=== PATIENT | male | born 1955 | race Caucasian/White ===

== ENCOUNTER 2017-07-25 09:36 | Outpatient (CLI) | payer OTHER ==
[2017-07-25 18:33] LABS: CALCIUM 9.1 mg/dL (8.5-10.3); POTASSIUM 4.1 mmol/L (3.5-5.0)
== END 2017-07-25 09:37 | disposition home or self-care (01) ==
LOC: LAB.F 09:36
PROVIDERS: ATTEND Family Medicine
DX: N17.9 Acute kidney failure, unspecified (principal)
CPT/HCPCS: 36415; 80048

== ENCOUNTER 2021-10-22 03:27 | Outpatient (CLI) | payer OTHER | END 2021-10-22 03:28 | disposition EMS.NT | LOC: EMS 03:27 | DX: S90.412A Abrasion, left great toe, initial encounter (principal); S90.411A Abrasion, right great toe, initial encounter; W18.39XA Other fall on same level, initial encounter; Y92.003 Bedroom of unspecified non-institutional (private) residence as the place of occurrence of the external cause ==

== ENCOUNTER 2022-12-06 18:00 | Outpatient (CLI) | payer OTHER | END 2022-12-06 18:01 | disposition short-term general hospital (02) | LOC: EMS 18:00 | DX: R06.02 Shortness of breath (principal); R14.0 Abdominal distension (gaseous); R60.0 Localized edema | CPT/HCPCS: A0425; A0429 ==

== ENCOUNTER 2022-12-17 04:44 | Outpatient (CLI) | payer OTHER | END 2022-12-17 04:45 | disposition EMS.NT | LOC: EMS 04:44 | DX: R53.1 Weakness (principal) ==

== ENCOUNTER 2022-12-26 19:50 | Outpatient (CLI) | payer OTHER | END 2022-12-26 23:59 | disposition short-term general hospital (02) | LOC: EMS 19:50 | DX: I46.9 Cardiac arrest, cause unspecified (principal) | CPT/HCPCS: A0425; A0433 ==